=== PATIENT | female | born 2000 | race Caucasian/White ===

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

== ENCOUNTER 2021-01-22 08:03 | Emergency (ER) | payer OTHER ==
[~2021-01-22] VITALS: Ht 152.4 cm; Wt 76.5 kg
--- NOTE | 2021-01-22 08:21 | PHYS DOC ---
Past History Past Medical History: Hypertension Past Surgical History: No Surgical History Smoking: Non-smoker Alcohol Use: Rarely Drug Use: None Adult General Chief Complaint Chief Complaint: FEVER HPI HPI Patient is a 20-year-old female presenting via POV for multiple complaints. States she has had dysuria for past 24 hours. First day last menstrual period was " in the middle of December sometime" and normal, admits she is sexually active but practices safe sex with condoms. Reports she has had issues starting in initiating stream and when she wiped this morning saw bright red blood which scared her. She also states that for the past 72 hours, she has had intermittent fevers, chills and body aches and pains. 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 See HPI for pertinent positives and negative responses, other whitley all other systems are negative, non-pertinent or non-contributory Allergies Allergies Allergies Coded Allergies Type Severity Reaction Last Updated Verified No Known Drug Allergies 01/22/21 No Physical Exam Physical Exam Constitutional: Well developed, well nourished, no acute distress, non-toxic appearance. HENT: Normocephalic, atraumatic, bilateral external ears normal, oropharynx moist, no oral exudates, nose normal. Eyes: PERRLA, EOMI, conjunctiva normal, no discharge. Neck: Normal range of motion, no tenderness, supple, no stridor. Cardiovascular: Heart rate regular, sinus rhythm, no murmurs rubs or gallops Lungs & Thorax: Bilateral breath sounds clear to auscultation Abdomen: Bowel sounds normal, soft, no tenderness, no masses, no pulsatile masses. Nonsurgical abdomen, no peritoneal signs Skin: Warm, dry, no erythema, no rash. Back: No tenderness, no CVA tenderness. Extremities: No tenderness, no cyanosis, no clubbing, ROM intact, no edema. Neurologic: Alert and oriented X 3, grossly normal motor & sensory function, no focal deficits noted. Psychologic: Affect normal, judgement normal, mood normal. Current Patient Data Vital Signs Vital Signs Date Time Temp Pulse Resp B/P (MAP) Pulse Ox O2 Delivery O2 Flow Rate FiO2 01/22/21 08:10 99.6 94 18 162/98 97 Room Air Vital Signs Date Time Temp Pulse Resp B/P (MAP) Pulse Ox O2 Delivery O2 Flow Rate FiO2 01/22/21 08:10 99.6 94 18 162/98 97 Room Air Lab Results Laboratory Tests Test 01/22/21 09:00 01/22/21 09:25 Urine Collection Type Unknown Urine Color Yellow Urine Clarity Cloudy Urine pH 5.5 Urine Specific [place] >=1.030 Urine Protein 100 mg/dl Urine Glucose (UA) Neg mg/dL Urine Ketones (Stick) Trace mg/dL Urine Blood Large Urine Nitrite Neg Urine Bilirubin Neg Urine Urobilinogen Dipstick 0.2 mg/dL Urine Leukocyte Esterase Mod Urine RBC 11-20 /HPF Urine WBC >40 /HPF Urine Squamous Epithelial Cells Few /LPF Urine Transitional Epithelial Cells Occ /LPF Urine Bacteria Few /HPF Bedside Urine HCG, Qualitative hcg negative EKG EKG [] Radiology/Procedures Radiology/Procedures [] Heart Score C/O Chest Pain: No Risk Factors: Risk Factors: DM, Current or recent (<one month) smoker, HTN, HLP, family history of CAD, obesity. Risk Scores: Risk Factors: DM, Current or recent (<one month) smoker, HTN, HLP, family history of CAD, obesity. Course & Med Decision Making Course & Med Decision Making Airway patent, breathing unlabored, vitals obtained concerning for hypertension in a patient with known hypertension and did not take daily lisinopril today HPI, physical examination and comprehensive ER work-up nonconcerning for any e mergent or surgical issues. Patient's presenting symptoms likely due to UTI, simple in nature and joint decision made to start Macrobid prescription Given recent URI symptoms in an unvaccinated student who has attended various large-scale sporting activities, decision made to test patient with results pending. Appropriate quarantine precautions discussed with good understanding b y patient All questions and concerns addressed. Strict return precautions discussed with good verbalized understanding by patient prior to ER departure Dragon Disclaimer Dragon Disclaimer This electronic medical record was generated, in whole or in part, using a voice recognition dictation system. Departure Departure: Impression: Primary Impression: UTI (urinary tract infection) Additional Impressions: Person under investigation for COVID-19 Hypertension Disposition: HOME / SELF CARE / HOMELESS Condition: STABLE Referrals: INDERJIT RICHARD MD (PCP) Additional Instructions: You were seen for chills, fever, body aches, and possible infection with COVID- 19. Your physical exam was reassuring. Your urinalysis was concerning for a urinary tract infection and decision was made to start you on Macrobid antibiotic. We tested you for COVID-19 but this test does not come back for 1 to 2 days. In the meantime you need to quarantine yourself at home away from all other individuals, especially those who are elderly or have any other chronic health issues or an immunocompromised status. You should return to the ED if you develop worsening cough, shortness of breath, chest pain, or any other new or concerning symptoms. Alternate Tylenol and ibuprofen as needed for body aches and pain. If your test does come back positive you need to quarantine yourself for 10 days until symptom-free. You should make sure to drink plenty of fluids and get plenty of rest. Scripts Nitrofurantoin Monohyd/M-Cryst (MACROBID 100 MG CAPSULE) 100 Mg Capsule 1 CAP PO BID for uti for 5 Days, #9 CAP 0 Refills Prov: NA WELLS DO 01/22/21 Problem Qualifiers NA WELLS DO Jan 22, 2021 08:21
[2021-01-22 09:48] LABS: BACTERIA,URINE FEW /HPF (0-FEW); BILIRUBIN,URINE NEG (NEG); CLARITY,URINE CLOUDY; COLOR,URINE YELLOW; GLUCOSE,URINE NEG (NEG); NITRITE,URINE NEG (NEG); SQUAMOUS EPITHELIAL CELL,UR FEW /LPF; UROBILINOGEN,URINE 0.2 mg/dL (0.2 mg/dL); WBC,URINE >40 /HPF (0-4)
[2021-01-22] MEDS ORDERED: NITROFURANTOIN MONOHYD/M-CRYST 100 MG CAPSULE. PO ONE (10:00)
[2021-01-22] MEDS ORDERED: NITR100C62 PO (10:01)
[2021-01-22 10:19] VITALS: BP 151/105
== END 2021-01-22 10:19 | disposition home or self-care (01) ==
LOC: ER 08:03
DX: N39.0 Urinary tract infection, site not specified (principal); I10 Essential (primary) hypertension; Z20.822 Contact with and (suspected) exposure to COVID-19
CPT/HCPCS: 81001; 81025; 87086; 99283; C9803; U0003; 87077; 87186

== ENCOUNTER → 2021-09-25 | Outpatient (CLI) | payer OTHER ==
[~2021-09-25] MED LIST changes: +NITR100C62 PO
--- NOTE | 2021-09-25 11:42 | RAD ---
EXAM: Abdomen sonogram. HISTORY: Pain. TECHNIQUE: Sonographic imaging of the abdomen was performed. COMPARISON: 10/04/2020. FINDINGS: The liver is normal in size. There is hepatic steatosis. There is a 2.3 cm nonvascular hypo echoic lesion within the right hepatic lobe. The common bile duct is normal in caliber. The gallbladd er is unremarkable. The kidneys and spleen are unremarkable. The pancreas, aorta and inferior vena ca va are obscured due to bowel gas. IMPRESSION: 1. Hepatic steatosis. 2. Stable 2.3 cm hypoechoic lesion within the right hepatic lobe, allowing for differences in imaging technique. The sonographic appearance favors a cyst. 3. Obscured midline structures due to bowel gas. Electronically signed by: Robina Kim MD (09/25/2021 11:39 AM) [id number]
== END ==
LOC: US 09:54
PROVIDERS: ATTEND Specialist
DX: K76.0 Fatty (change of) liver, not elsewhere classified (principal)
CPT/HCPCS: 76700